=== PATIENT | female | born 1995 | race Two or more races ===

== ENCOUNTER 2017-08-08 16:49 | Emergency (ER) | payer MEDICAID ==
[~2017-08-08] VITALS: Ht 165.1 cm; Wt 86.2 kg
[~2017-08-08 16:49] MED LIST: IRON325 M1 PO; MEDROL DOSEPAK4 MG PO; NEURONTIN100 MG ORAL; NKM; PREDNISONE20 MG ORAL; PRENATAL CAPLE1 EACH PO; STOOL SOFTENER50 M1 PO; TRIAMCINOLONE A15 G2 TP; ZOFRAN ODT4 MG ORAL
--- NOTE | 2017-08-08 17:15 | Emergency Room Report ---
History of Present Illness General Chief Complaint: Complications Source: Patient, Medical Record Present Illness HPI 21-year-old female patient presents to ER complaining of right lower quadrant pain since this morning. Patient states the pain is intermittent; reports the pain is dull and "squeezing " in nature. Patient states she has not taken anything for the pain; reports she is able to "breathe through the pain" until it subsides. Patient states she is 5 weeks . Patient states she is currently taking vitamins. Patient reports a history of 2 previous pregnancies; states both resulted in spontaneous abortions. Patient reports both pregnancies were considered high risk secondary to high blood pressure. Patient reports history of allergy to Acetaminophen; states she becomes nauseous and vomits when she takes the pills. Patient denies fever, dysuria, hematuria, vaginal bleeding. Allergies: Coded Allergies: ACETAMINOPHEN (Verified Allergy, Unknown, 05/08/15) AMOXICILLIN (Verified Allergy, Unknown, 08/08/17) IBUPROFEN (Verified Allergy, Unknown, 05/08/15) PAMABROM (Verified Allergy, Unknown, 05/08/15) Patient History Last Menstrual Period: 06/18/17 Now: Yes - 5 weeks : 3 Para: 0 Reviewed Nursing Documentation: PMH: Agreed, PSxH: Agreed Nursing Documentation-PMH Past Medical History: No History, Except For Hx Asthma: Yes - positive TB test Hx Neurological Problems: Yes - LUPUS Review of Systems All Other Systems: negative except mentioned in HPI Physical Exam Vital Signs Date Time Temp Pulse Resp B/P (MAP) Pulse Ox O2 Delivery O2 Flow Rate FiO2 08/08/17 16:53 98.2 88 18 127/72 100 Room Air Sp02 EP Interpretation: reviewed, normal General Appearance: no apparent distress, alert, GCS 15, non-toxic Head: normocephalic, atraumatic Eyes: bilateral eye normal inspection, bilateral eye PERRL ENT: hearing grossly normal, normal pharynx, normal voice, TMs + canals normal , uvula midline, moist mucus membranes Neck: full range of motion Respiratory: chest non-tender, lungs clear, normal breath sounds, no respiratory distress, speaking full sentences Cardiovascular #1: regular rate, rhythm, no edema Gastrointestinal: normal bowel sounds, soft, no mass, non-distended, no guarding, no rebound, tenderness - RLQ, other - pain in RLQ with jumping on right foot Genitourinary: no CVA tenderness Musculoskeletal: back normal, gait/station normal, normal range of motion, non- tender, no calf tenderness Neurologic: alert, oriented x3, responsive, motor strength/tone normal, sensory intact, speech normal Psychiatric: mood/affect normal Skin: normal color, no rash, warm/dry, well hydrated Medical Decision Making PA Attestation Dr. Badillo is my supervising Physician whom patient management has been discussed with. Diagnostic Impression: Primary Impression: Abdominal pain during Additional Impression: Cyst of left kidney ER Course Pt. presents to the ED c/o abdominal pain. Ddx considered but are not limited to UTI, appendicitis, ovarian torsion, related abdominal pain. US performed in ED by Dr. Badillo to confirm presence of IUP. Discussed workup with Dr. Badillo, began workup to rule out appendicitis and ovarian torsion. Vital signs: are WNL, pt. is afebrile. ORDERS: UA with reflux, urine CBC, CMP, PT, PTT, lipase Type and Cross Abdominal US US packaging technician reports no acute findings of appendicitis or ovarian torsion. Reports finding of cyst in left kidney. ER COURSE: Discussed results of labs and imaging with patient. CBC shows no elevation in WBC, infection unlikely. UA negative for nitrites and WBCs, UTI unlikely. Abdominal US negative for acute appendicitis and ovarian torsion. Informed patient of left kidney cyst; informed patient that cyst is unlikely to be cause of pain; instructed patient to follow up with PCP regarding monitoring and treatment of cyst. Patient reporting pain has subsided since acute onset. Patient resting comfortably in the room, in no acute distress, non-toxic appearing. Patient requested medication for nausea. Explained possible effects of nausea medications on . Patient declined use of medication for nausea following discussion of risks of use. Patient was not discharge home with medications for pain secondary to allergy symptoms and . Patient declined use of medication for pain. Patient states she does not want to take any medication that may cause potential complications with her . Informed patient that abdominal pain may be related to . Patient instructed to follow up with OBGYN in 3-5 days for further treatment and evaluation of pain symptoms. Patient reports understanding and agreement with treatment plan. At this time pt. is stable for d/c to home with strict instructions to return to ER for new and/or worsening of symptoms. Will provide printed patient care instructions, and any necessary prescriptions. Care plan and follow up instructions have been discussed with the patient prior to discharge Labs Test 08/08/17 17:15 08/08/17 18:20 Urine Color Pale yellow Urine Appearance Clear Urine pH 7 (4.5-8.0) Urine Specific [place] 1.010 (1.005-1.035) Urine Protein Negative (NEGATIVE) Urine Glucose (UA) Negative (NEGATIVE) Urine Ketones Negative (NEGATIVE) Urine Occult Blood Negative (NEGATIVE) Urine Nitrite Negative (NEGATIVE) Urine Bilirubin Negative (NEGATIVE) Urine Urobilinogen Normal MG/DL (0.0-1.0) Urine Leukocyte Esterase 1+ (NEGATIVE) Urine RBC 0-2 /HPF (0 - 2) Urine WBC 0-2 /HPF (0 - 2) Urine Squamous Epithelial Cells Moderate /LPF (NONE/OCC) Urine Bacteria Occasional /HPF (NONE) Urine HCG, Qualitative Positive White Blood Count 10.6 K/UL (4.8-10.8) Red Blood Count 4.10 M/UL (4.20-5.40) Hemoglobin 12.2 G/DL (12.0-16.0) Hematocrit 36.5 % (37.0-47.0) Mean Corpuscular Volume 89 FL (80-99) Mean Corpuscular Hemoglobin 29.7 PG (27.0-31.0) Mean Corpuscular Hemoglobin Concent 33.3 G/DL (32.0-36.0) Red Cell Distribution Width 11.9 % (11.6-14.8) Platelet Count 320 K/UL (150-450) Mean Platelet Volume 6.7 FL (6.5-10.1) Neutrophils (%) (Auto) 59.7 % (45.0-75.0) Lymphocytes (%) (Auto) 30.1 % (20.0-45.0) Monocytes (%) (Auto) 6.6 % (1.0-10.0) Eosinophils (%) (Auto) 2.7 % (0.0-3.0) Basophils (%) (Auto) 1.0 % (0.0-2.0) Prothrombin Time 10.1 SEC (9.30-11.50) Prothromb Time International Ratio 1.0 (0.9-1.1) Activated Partial Thromboplast Time 29 SEC (23-33) Sodium Level 138 MMOL/L (136-145) Potassium Level 3.9 MMOL/L (3.5-5.1) Chloride Level 105 MMOL/L (98-107) Carbon Dioxide Level 26 MMOL/L (21-32) Anion Gap 7 mmol/L (5-15) Blood Urea Nitrogen 10 mg/dL (7-18) Creatinine 0.8 MG/DL (0.55-1.30) Estimat Glomerular Filtration Rate > 60 mL/min (>60) Glucose Level 84 MG/DL (74-106) Calcium Level 8.6 MG/DL (8.5-10.1) Total Bilirubin 0.1 MG/DL (0.2-1.0) Aspartate Amino Transf (AST/SGOT) 11 U/L (15-37) Alanine Aminotransferase (ALT/SGPT) 15 U/L (12-78) Alkaline Phosphatase 70 U/L (46-116) Total Protein 7.3 G/DL (6.4-8.2) Albumin 3.4 G/DL (3.4-5.0) Globulin 3.9 g/dL Albumin/Globulin Ratio 0.9 (1.0-2.7) Lipase 158 U/L (73-393) Human Chorionic Gonadotropin, Quant 24290 mIU/mL (1-6) CT/MRI/US Diagnostic Results CT/MRI/US Diagnostic Results : Imaging Test Ordered: US abdomen Impression No evidence acute intra-abdominal pathology. Left simple renal cyst. Last Vital Signs Date Time Temp Pulse Resp B/P (MAP) Pulse Ox O2 Delivery O2 Flow Rate FiO2 08/08/17 16:53 98.2 88 18 127/72 100 Room Air Disposition: HOME, SELF-CARE Condition: Stable Patient Instructions: Abdominal Pain During , [id number] Additional Instructions: Followup with OBGYN in 3 -5 days. Take medications as directed. Patient questions asked and answered. ER precautions given, patient instructed to return to ER immediately for any new or worsening of symptoms. Kei Jean Aug 08, 2017 17:15
[2017-08-08 17:43] LABS: APPEARANCE,URINE CLEAR; BILIRUBIN, URINE NEGATIVE (NEGATIVE); COLOR,URINE PALE YELLOW; GLUCOSE, URINE (UA) NEGATIVE (NEGATIVE); KETONES,URINE NEGATIVE (NEGATIVE); LEUKOCYTE ESTERASE ,URINE 1+ (NEGATIVE); NITRITE,URINE NEGATIVE (NEGATIVE); PH,URINE 7 (4.5-8.0); PROTEIN,URINE NEGATIVE (NEGATIVE); UROBILINOGEN,URINE NORMAL MG/DL (0.0-1.0)
[2017-08-08 18:48] LABS: EOSINOPHILS % (AUTO) 2.7 % (0.0-3.0); HEMATOCRIT 36.5 % (37.0-47.0); HEMOGLOBIN 12.2 G/DL (12.0-16.0); LYMPHOCYTES % (AUTO) 30.1 % (20.0-45.0); MEAN CORPUSCULAR VOLUME 89 FL (80-99); MONOCYTES % (AUTO) 6.6 % (1.0-10.0); NEUTROPHILS % (AUTO) 59.7 % (45.0-75.0); PLATELET COUNT 320 K/UL (150-450); RED CELL DISTRIBUTION WIDTH 11.9 % (11.6-14.8); WHITE BLOOD COUNT 10.6 K/UL (4.8-10.8)
[2017-08-08 18:55] LABS: ANION GAP 7 mmol/L (5-15); BLOOD UREA NITROGEN 10 mg/dL (7-18); CALCIUM 8.6 MG/DL (8.5-10.1); CARBON DIOXIDE 26 MMOL/L (21-32); CHLORIDE 105 MMOL/L (98-107); CREATININE 0.8 MG/DL (0.55-1.30); POTASSIUM 3.9 MMOL/L (3.5-5.1); SODIUM 138 MMOL/L (136-145)
[2017-08-08 19:05] LABS: ALANINE AMINOTRANSFERASE 15 U/L (12-78); ALBUMIN 3.4 G/DL (3.4-5.0); ALBUMIN/GLOBULIN RATIO 0.9 (1.0-2.7); ALKALINE PHOSPHATASE 70 U/L (46-116); ASPARTATE AMINO TRANSFERASE 11 U/L (15-37); BILIRUBIN,TOTAL 0.1 MG/DL (0.2-1.0)
[2017-08-08 21:06] VITALS: BP 120/69
--- NOTE | 2017-08-09 13:10 | Diagnostic Imaging Report ---
Indication: Pain Technique: US ABD Complete Comparison: None Findings: Imaged portions of the pancreatic head are unremarkable. The body and tail are not seen. Liver is normal in size with the right lobe measuring 15.9 cm in length. Hepatic contour is smooth. No focal liver lesion is appreciated sonographically. Portal vein is patent with normal directional flow. Imaged hepatic veins are patent. Common bile duct measures 3.4 mm in diameter. Gallbladder within normal limits. No gallbladder wall thickening or pericholecystic fluid. Kidneys are symmetric in size. They demonstrate normal parenchymal thickness and echogenicity. A circumscribed anechoic rounded structure in the midpole the left kidney measuring up to 1.4 cm compatible with a simple renal cyst. No hydronephrosis or sonographically appreciable renal stones bilaterally. Spleen unremarkable in appearance. It is normal in size. Visualized portions of the aorta and IVC unremarkable in appearance. There is no ascites. IMPRESSION: No sonographic evidence of acute intra-abdominal pathology. Left simple renal cyst. This corresponds with the preliminary report issued to the emergency department by the aeronautical engineering technologist.
== END 2017-08-08 21:06 | disposition home or self-care (01) ==
LOC: EMR 18:04
DX: O26.891 Other specified pregnancy related conditions, first trimester (principal); Z3A.01 Less than 8 weeks gestation of pregnancy; R10.31 Right lower quadrant pain; M32.9 Systemic lupus erythematosus, unspecified; N28.1 Cyst of kidney, acquired; Z88.6 Allergy status to analgesic agent; Z88.0 Allergy status to penicillin
CPT/HCPCS: 36415; 76700; 80053; 81003; 81025; 83690; 84702; 85025; 85610; 85730; 86850; 86900; 86901; 99283

== ENCOUNTER 2017-09-04 13:28 | Emergency (ER) | payer MEDICAID ==
[~2017-09-04] VITALS: Ht 165.1 cm; Wt 85.7 kg
--- NOTE | 2017-09-04 14:33 | Emergency Room Report ---
History of Present Illness General Chief Complaint: Complications Source: Patient (Kei Jean) Present Illness HPI 22 yo patient presents to ER sent by OBGYN for possible threatened . Patient reports vaginal spotting x3days; denies passage of tissue. Patient denies vaginal discharge. Denies dysuria, frequency, urgency. Patient complaining of abdominal pain and flank pain. Patient also complains of nausea and vomiting during this time. Denies hx of trauma. States unable to take nausea and NSAID medications due to risk of complications and allergies to medications. Patient reports following pelvic exam at OBGYN was sent to ER to rule out threatened . Patient reports history of 2 spontaneous abortions and one high risk that went to full term. Patient denies chest pain, KAM, SOB, rash. (Kei Jean) Allergies: Coded Allergies: ACETAMINOPHEN (Verified Allergy, Unknown, 05/08/15) AMOXICILLIN (Verified Allergy, Unknown, 08/08/17) IBUPROFEN (Verified Allergy, Unknown, 05/08/15) PAMABROM (Verified Allergy, Unknown, 05/08/15) Patient History Past Medical History: see triage record Last Menstrual Period: 06/28/2017 Now: Yes : 4 Para: 1 (Kei Jean) Nursing Documentation-[facility] Past Medical History: No History, Except For Hx Asthma: Yes - positive TB test Hx Neurological Problems: Yes - LUPUS (Kei Jean) Review of Systems All Other Systems: negative except mentioned in HPI (Kei Jean) Physical Exam Vital Signs Date Time Temp Pulse Resp B/P (MAP) Pulse Ox O2 Delivery O2 Flow Rate FiO2 09/04/17 13:37 98.3 106 18 109/69 97 Room Air 98.2 Sp02 EP Interpretation: reviewed, normal General Appearance: well appearing, alert, GCS 15, non-toxic, mild distress Head: normocephalic, atraumatic Eyes: bilateral eye normal inspection, bilateral eye PERRL ENT: hearing grossly normal, normal pharynx, normal voice, TMs + canals normal , uvula midline, moist mucus membranes Neck: full range of motion Respiratory: normal inspection, lungs clear, normal breath sounds, no respiratory distress, no accessory muscle use, no wheezing, speaking full sentences Cardiovascular #1: regular rate, rhythm, no edema Gastrointestinal: normal bowel sounds, non tender, soft, no mass, non-distended , no guarding, no rebound, other - negative Rovsing, negative TTP at McBurney's point Genitourinary: no CVA tenderness, other, deferred Musculoskeletal: back normal, digits/nails normal, gait/station normal, normal range of motion, no calf tenderness Neurologic: alert, oriented x3, responsive, motor strength/tone normal, sensory intact, normal gait Psychiatric: mood/affect normal Skin: no rash Lymphatic: no adenopathy (Kei Jean) Medical Decision Making PA Attestation Dr. Melendez is my supervising Physician whom patient management has been discussed with. (Kei Jean) Diagnostic Impression: Primary Impression: Abdominal pain during Qualified Codes: O26.891 - Other specified related conditions, first trimester; R10.9 - Unspecified abdominal pain Additional Impressions: Nausea/vomiting in Threatened miscarriage in early ER Course Pt. presents to the ED c/o possible threatened sent to ER by OBGYN. Ddx considered but are not limited to threatened , ectopic , missed , gestational trophoblastic disease. Vital signs: WNL pt. is afebrile; pulse slightly elevated, likely normal due to patient being mildly anxious over possible complications; denies chest pain, SOB. Ordered labs, UA, HCQ quant, urine , pelvic US, type and screen, and IV fluids. Patient declining medications at this time; reports allergies to Tylenol and Motrin and does not want nausea medications due to possible concerns of complications. ER COURSE: Patient deferred pelvic exam; states already had pelvic exam performed at OBGYN today and does not want another performed. CBC unremarkable, no elevation in WBC. HCG quant elevated; shows increase in level from previous visit. UA negative for nitrites, does not require treatment for UTI Urine HCG positive. Pelvic US negative; shows IUP, pole, yolk and gestational sac, FHR positive and no free fluid or adnexal masses. Results discussed with patient. Informed patient of type and screen results. Patient resting comfortably in bed, reports feeling mildly better after receiving IV fluids. Patient still reports pain complaints at this time. Informed patient to followup with OBGYN and primary care provider for further followup and treatment. Patient reports appointments already scheduled. Informed patient that she should discuss bed rest with OBGYN due to recurrence of symptoms. Informed patient to rest at home until followup visit. Patient and mother requesting copy of ultrasound report from today and previous visits. Patient informed to report to medical records. Provided copy of today's US results in discharge paperwork DISCHARGE: No rx provided at this time. Followup with OBGYN for further treatment for symptom relief. At this time pt. is stable for d/c to home. Patient vitals WNL prior to discharge. Will provide printed patient care instructions, and any necessary prescriptions. Patient instructed to follow with primary care provider for further treatment and referral as needed. Care plan and follow up instructions have been discussed with the patient prior to discharge. Patient reports understanding and agreement to treatment plan. Patient questions asked and answered. ER precautions given, patient instructed to return to ER immediately for any new or worsening of symptoms including but not limited to heavy bleeding, fever , pain. Labs Test 09/04/17 14:00 09/04/17 14:10 White Blood Count 7.5 K/UL (4.8-10.8) Red Blood Count 4.59 M/UL (4.20-5.40) Hemoglobin 13.7 G/DL (12.0-16.0) Hematocrit 40.5 % (37.0-47.0) Mean Corpuscular Volume 88 FL (80-99) Mean Corpuscular Hemoglobin 29.9 PG (27.0-31.0) Mean Corpuscular Hemoglobin Concent 33.9 G/DL (32.0-36.0) Red Cell Distribution Width 11.9 % (11.6-14.8) Platelet Count 298 K/UL (150-450) Mean Platelet Volume 6.7 FL (6.5-10.1) Neutrophils (%) (Auto) 79.1 % (45.0-75.0) Lymphocytes (%) (Auto) 12.7 % (20.0-45.0) Monocytes (%) (Auto) 6.2 % (1.0-10.0) Eosinophils (%) (Auto) 1.4 % (0.0-3.0) Basophils (%) (Auto) 0.7 % (0.0-2.0) Sodium Level 135 MMOL/L (136-145) Potassium Level 4.0 MMOL/L (3.5-5.1) Chloride Level 101 MMOL/L (98-107) Carbon Dioxide Level 27 MMOL/L (21-32) Anion Gap 7 mmol/L (5-15) Blood Urea Nitrogen 9 mg/dL (7-18) Creatinine 0.6 MG/DL (0.55-1.30) Estimat Glomerular Filtration Rate > 60 mL/min (>60) Glucose Level 95 MG/DL (74-106) Calcium Level 9.1 MG/DL (8.5-10.1) Total Bilirubin 0.1 MG/DL (0.2-1.0) Aspartate Amino Transf (AST/SGOT) 19 U/L (15-37) Alanine Aminotransferase (ALT/SGPT) 21 U/L (12-78) Alkaline Phosphatase 71 U/L (46-116) Total Protein 7.4 G/DL (6.4-8.2) Albumin 3.3 G/DL (3.4-5.0) Globulin 4.1 g/dL Albumin/Globulin Ratio 0.8 (1.0-2.7) Lipase 140 U/L (73-393) Human Chorionic Gonadotropin, Quant 038093 mIU/mL (1-6) Urine Color Yellow Urine Appearance Clear Urine pH 7 (4.5-8.0) Urine Specific [place] 1.015 (1.005-1.035) Urine Protein Negative (NEGATIVE) Urine Glucose (UA) Negative (NEGATIVE) Urine Ketones Negative (NEGATIVE) Urine Occult Blood 2+ (NEGATIVE) Urine Nitrite Negative (NEGATIVE) Urine Bilirubin Negative (NEGATIVE) Urine Urobilinogen Normal MG/DL (0.0-1.0) Urine Leukocyte Esterase 1+ (NEGATIVE) Urine RBC 2-4 /HPF (0 - 2) Urine WBC 2-4 /HPF (0 - 2) Urine Squamous Epithelial Cells Moderate /LPF (NONE/OCC) Urine Bacteria Few /HPF (NONE) Urine HCG, Qualitative Positive (Kei Jean P.A.) CT/MRI/US Diagnostic Results CT/MRI/US Diagnostic Results : Imaging Test Ordered: Pelvis US Impression Appear to be GS, yolk sac, and pole measured 11 wks and 2 days. FHR positive at 168bpm. No adnexal mass. No free fluid. (Kei Jean P.A.) Last Vital Signs Date Time Temp Pulse Resp B/P (MAP) Pulse Ox O2 Delivery O2 Flow Rate FiO2 09/04/17 13:37 98.3 106 18 109/69 97 Room Air 98.2 (Kei Jean) Last Vital Signs Date Time Temp Pulse Resp B/P (MAP) Pulse Ox O2 Delivery O2 Flow Rate FiO2 09/04/17 16:23 98.3 68 18 109/69 97 Room Air 98.2 Status: improved (Robel Melendez M.D.) Disposition: HOME, SELF-CARE Condition: Stable Patient Instructions: Abdominal Pain During , [id number] Additional Instructions: Followup with OBGYN in 2-3 days. Patient questions asked and answered. ER precautions given, patient instructed to return to ER immediately for any new or worsening of symptoms. Ultrasound results below. Appear to be GS, yolk sac, and pole measured 11 wks and 2 days. FHR positive at 168bpm. No adnexal mass. No free fluid. Kei Jean Sep 04, 2017 14:33 Robel Melendez M.D. Sep 05, 2017 23:18
[2017-09-04 14:34] LABS: BASOPHILS % (AUTO) 0.7 % (0.0-2.0); EOSINOPHILS % (AUTO) 1.4 % (0.0-3.0); HEMATOCRIT 40.5 % (37.0-47.0); HEMOGLOBIN 13.7 G/DL (12.0-16.0); LYMPHOCYTES % (AUTO) 12.7 % (20.0-45.0); MEAN CORPUSCULAR VOLUME 88 FL (80-99); MONOCYTES % (AUTO) 6.2 % (1.0-10.0); NEUTROPHILS % (AUTO) 79.1 % (45.0-75.0); PLATELET COUNT 298 K/UL (150-450); RED BLOOD COUNT 4.59 M/UL (4.20-5.40); RED CELL DISTRIBUTION WIDTH 11.9 % (11.6-14.8); WHITE BLOOD COUNT 7.5 K/UL (4.8-10.8)
[2017-09-04 14:46] LABS: ANION GAP 7 mmol/L (5-15); BLOOD UREA NITROGEN 9 mg/dL (7-18); CALCIUM 9.1 MG/DL (8.5-10.1); CARBON DIOXIDE 27 MMOL/L (21-32); CHLORIDE 101 MMOL/L (98-107); CREATININE 0.6 MG/DL (0.55-1.30); SODIUM 135 MMOL/L (136-145)
[2017-09-04 14:51] LABS: ALANINE AMINOTRANSFERASE 21 U/L (12-78); ALBUMIN 3.3 G/DL (3.4-5.0); ALBUMIN/GLOBULIN RATIO 0.8 (1.0-2.7); ALKALINE PHOSPHATASE 71 U/L (46-116); ASPARTATE AMINO TRANSFERASE 19 U/L (15-37); BILIRUBIN,TOTAL 0.1 MG/DL (0.2-1.0)
[2017-09-04 14:51] LABS: APPEARANCE,URINE CLEAR; BILIRUBIN, URINE NEGATIVE (NEGATIVE); GLUCOSE, URINE (UA) NEGATIVE (NEGATIVE); KETONES,URINE NEGATIVE (NEGATIVE); LEUKOCYTE ESTERASE ,URINE 1+ (NEGATIVE); NITRITE,URINE NEGATIVE (NEGATIVE); PH,URINE 7 (4.5-8.0); PROTEIN,URINE NEGATIVE (NEGATIVE); UROBILINOGEN,URINE NORMAL MG/DL (0.0-1.0)
[2017-09-04 15:07] LABS: COLOR,URINE YELLOW
[2017-09-04 16:23] VITALS: BP 109/69
== END 2017-09-04 16:23 | disposition home or self-care (01) ==
LOC: EMR 13:50
DX: O20.0 Threatened abortion (principal); O21.9 Vomiting of pregnancy, unspecified; O26.891 Other specified pregnancy related conditions, first trimester; M32.9 Systemic lupus erythematosus, unspecified; J45.909 Unspecified asthma, uncomplicated; Z88.0 Allergy status to penicillin; Z88.6 Allergy status to analgesic agent; Z88.8 Allergy status to other drugs, medicaments and biological substances
CPT/HCPCS: 36415; 76801; 76830; 80053; 81003; 81025; 83690; 84702; 85025; 86850; 86900; 86901; 96360; 99284

== ENCOUNTER → 2017-11-14 | Emergency (ER) | payer SELFPAY ==
[~2017-11-14] VITALS: Ht 167.6 cm; Wt 90.7 kg
[2017-11-14 12:05] VITALS: BP 107/49
--- NOTE | 2017-11-14 12:17 | Emergency Room Report ---
History of Present Illness General Chief Complaint: Abdominal Pain Source: Patient Present Illness HPI 22 yo female patient presents to ER complaining of abdominal pain and vaginal cramping for the past few days. Patient reports that she is 20 weeks . reports her "friend" performed an ultrasound yesterday and saw that there was less fluid than there should be, told, "friend" to go to [facility]. Reports she went [facility] today. Reports was seen in [facility] office today and sent to ER because could not perform ultrasound in office after that time. States unable to take nausea and NSAID medications due to risk of complications and allergies to medications. Patient reports history of 2 spontaneous abortions and one high risk that went to full term; reports high risk due to leg swelling and blood pressure. Reports hx of intermittent leg swelling during this time. Denies pain with ambulation or calf pain acutely. Denies hx of blood pressure problems or past medical hx. Denies hx of fainting. Denies fever, chest pain, calf pain, KAM, vision changes. patient also complains of intermittent epistaxis during this time, reports bleeding from nose. Gary active bleeding at this time. Allergies: Coded Allergies: AMOXICILLIN (Verified Allergy, Unknown, 08/08/17) Patient History Past Medical History: see triage record Reviewed Nursing Documentation: PMH: Agreed; PSxH: Agreed Nursing Documentation-PMH Past Medical History: No History, Except For Hx Asthma: Yes - positive TB test Hx Neurological Problems: Yes - LUPUS Review of Systems All Other Systems: negative except mentioned in HPI Physical Exam Vital Signs Date Time Temp Pulse Resp B/P (MAP) Pulse Ox O2 Delivery O2 Flow Rate FiO2 11/14/17 12:05 99.2 110 20 119/63 97 Room Air 99.1 Sp02 EP Interpretation: reviewed, normal General Appearance: well appearing, no apparent distress, alert, GCS 15, non- toxic Head: normocephalic, atraumatic Eyes: bilateral eye normal inspection, bilateral eye PERRL ENT: hearing grossly normal, normal pharynx, no angioedema, normal voice, TMs + canals normal, uvula midline, moist mucus membranes, other - left nares: dried blood, no active bleeding Neck: full range of motion Respiratory: lungs clear, normal breath sounds, no rhonchi, no respiratory distress, no accessory muscle use, no wheezing, speaking full sentences Cardiovascular #1: regular rate, rhythm, no edema Gastrointestinal: non tender, soft, no mass, non-distended, no guarding, no rebound Genitourinary: no CVA tenderness, deferred Musculoskeletal: back normal, digits/nails normal, gait/station normal, normal range of motion, non-tender, no calf tenderness, Josie's Sign negative Neurologic: alert, oriented x3, responsive, motor strength/tone normal, sensory intact Psychiatric: mood/affect normal Medical Decision Making PA Attestation Dr. Torres is my supervising Physician whom patient management has been discussed with. Diagnostic Impression: Primary Impression: Abdominal pain during ER Course Pt presents to ED c/o vaginal bleeding/spotting and epistaxis. DDX considered but are not limited to threatened , incomplete , complete , UTI, placenta previa, placenta abruption. VITAL SIGNS are WNL, patient is afebrile. Ordered CBC, CMP, UA, UCG, bHCG, IV NS and pelvic US. Tylenol for pain control. ER COURSE: Patient declined medication. CBC and CMP unremarkable, Hgb 11.1, blood glucose 116 UA results moderate epithelial cells, leukocyte esterase 2+, negative nitrites, no complaints of dysuria, will not treat for UTI at this time. Urine positive BetaHCG 8514 Blood type previously done. Blood type O positive, antibody screen negative. Pelvic US shows 20 week 3 day gestation, IUP, FHR 140, active movements. Patient reports feeling better following IV fluids. Discuss patient with Dr. Torres. Due to concerns of premature labor in patient over 20 weeks. Contacted L&D at [facility], discuss patient with OBGYN Dr. Reyes. Dr. Reyes states will accept transfer of patient. Patient transferred by ambulance to [facility] L&D. - Please note that this Emergency Department Report was dictated using [employer]acem[employer] operator technology software, occasionally this can lead to erroneous entry secondary to interpretation by the dictation equipment. Labs Test 11/14/17 12:30 11/14/17 12:45 Urine Color Pale yellow Urine Appearance Clear Urine pH 6.5 (4.5-8.0) Urine Specific [place] 1.010 (1.005-1.035) Urine Protein Negative (NEGATIVE) Urine Glucose (UA) Negative (NEGATIVE) Urine Ketones Negative (NEGATIVE) Urine Occult Blood Negative (NEGATIVE) Urine Nitrite Negative (NEGATIVE) Urine Bilirubin Negative (NEGATIVE) Urine Urobilinogen Normal MG/DL (0.0-1.0) Urine Leukocyte Esterase 2+ (NEGATIVE) Urine RBC 0-2 /HPF (0 - 2) Urine WBC 2-4 /HPF (0 - 2) Urine Squamous Epithelial Cells Moderate /LPF (NONE/OCC) Urine Bacteria Few /HPF (NONE) Urine HCG, Qualitative Positive (NEGATIVE) White Blood Count 10.7 K/UL (4.8-10.8) Red Blood Count 3.91 M/UL (4.20-5.40) Hemoglobin 11.8 G/DL (12.0-16.0) Hematocrit 34.5 % (37.0-47.0) Mean Corpuscular Volume 88 FL (80-99) Mean Corpuscular Hemoglobin 30.1 PG (27.0-31.0) Mean Corpuscular Hemoglobin Concent 34.1 G/DL (32.0-36.0) Red Cell Distribution Width 11.9 % (11.6-14.8) Platelet Count 299 K/UL (150-450) Mean Platelet Volume 6.8 FL (6.5-10.1) Neutrophils (%) (Auto) 75.0 % (45.0-75.0) Lymphocytes (%) (Auto) 17.6 % (20.0-45.0) Monocytes (%) (Auto) 4.9 % (1.0-10.0) Eosinophils (%) (Auto) 1.8 % (0.0-3.0) Basophils (%) (Auto) 0.7 % (0.0-2.0) Sodium Level 136 MMOL/L (136-145) Potassium Level 3.7 MMOL/L (3.5-5.1) Chloride Level 103 MMOL/L (98-107) Carbon Dioxide Level 21 MMOL/L (21-32) Anion Gap 12 mmol/L (5-15) Blood Urea Nitrogen 10 mg/dL (7-18) Creatinine 0.5 MG/DL (0.55-1.30) Estimat Glomerular Filtration Rate > 60 mL/min (>60) Glucose Level 111 MG/DL (74-106) Calcium Level 8.8 MG/DL (8.5-10.1) Total Bilirubin 0.2 MG/DL (0.2-1.0) Aspartate Amino Transf (AST/SGOT) 14 U/L (15-37) Alanine Aminotransferase (ALT/SGPT) 16 U/L (12-78) Alkaline Phosphatase 79 U/L (46-116) Total Protein 6.7 G/DL (6.4-8.2) Albumin 2.8 G/DL (3.4-5.0) Globulin 3.9 g/dL Albumin/Globulin Ratio 0.7 (1.0-2.7) Lipase 130 U/L (73-393) Human Chorionic Gonadotropin, Quant 8514 mIU/mL (1-6) CT/MRI/US Diagnostic Results CT/MRI/US Diagnostic Results : Imaging Test Ordered: Pelvic US Impression per fleet technician, heart rate 140, gestational age 20 weeks 3 days , normal fluid, active movements. Last Vital Signs Date Time Temp Pulse Resp B/P (MAP) Pulse Ox O2 Delivery O2 Flow Rate FiO2 11/14/17 12:05 99.2 110 20 119/63 97 Room Air 99.1 Disposition: [facility] - [place] L&D Condition: Serious Patient Instructions: Abdominal Pain During Kei Jean November 14, 2017 12:17
[2017-11-14 13:07] LABS: BASOPHILS % (AUTO) 0.7 % (0.0-2.0); EOSINOPHILS % (AUTO) 1.8 % (0.0-3.0); HEMATOCRIT 34.5 % (37.0-47.0); HEMOGLOBIN 11.8 G/DL (12.0-16.0); LYMPHOCYTES % (AUTO) 17.6 % (20.0-45.0); MEAN CORPUSCULAR VOLUME 88 FL (80-99); MONOCYTES % (AUTO) 4.9 % (1.0-10.0); PLATELET COUNT 299 K/UL (150-450); RED BLOOD COUNT 3.91 M/UL (4.20-5.40); RED CELL DISTRIBUTION WIDTH 11.9 % (11.6-14.8); WHITE BLOOD COUNT 10.7 K/UL (4.8-10.8)
[2017-11-14 13:08] LABS: APPEARANCE,URINE CLEAR; BILIRUBIN, URINE NEGATIVE (NEGATIVE); COLOR,URINE PALE YELLOW; GLUCOSE, URINE (UA) NEGATIVE (NEGATIVE); KETONES,URINE NEGATIVE (NEGATIVE); LEUKOCYTE ESTERASE ,URINE 2+ (NEGATIVE); NITRITE,URINE NEGATIVE (NEGATIVE); PH,URINE 6.5 (4.5-8.0); PROTEIN,URINE NEGATIVE (NEGATIVE); UROBILINOGEN,URINE NORMAL MG/DL (0.0-1.0)
[2017-11-14 13:28] LABS: ANION GAP 12 mmol/L (5-15); BLOOD UREA NITROGEN 10 mg/dL (7-18); CALCIUM 8.8 MG/DL (8.5-10.1); CARBON DIOXIDE 21 MMOL/L (21-32); CHLORIDE 103 MMOL/L (98-107); CREATININE 0.5 MG/DL (0.55-1.30); POTASSIUM 3.7 MMOL/L (3.5-5.1); SODIUM 136 MMOL/L (136-145)
[2017-11-14 13:32] LABS: ALANINE AMINOTRANSFERASE 16 U/L (12-78); ALBUMIN 2.8 G/DL (3.4-5.0); ALBUMIN/GLOBULIN RATIO 0.7 (1.0-2.7); ALKALINE PHOSPHATASE 79 U/L (46-116); ASPARTATE AMINO TRANSFERASE 14 U/L (15-37); BILIRUBIN,TOTAL 0.2 MG/DL (0.2-1.0)
[2017-11-14 14:54] VITALS: BP 100/57
[2017-11-14 15:25] VITALS: BP 124/71
--- NOTE | 2017-11-14 16:07 | Diagnostic Imaging Report ---
Indications: patient. Abdominal CABG x1 week. Nausea, vomiting. Technique: Transabdominal real-time grayscale and duplex Doppler imaging of intrauterine was performed. Comparison: 09/04/2017. Findings: There is a single live intrauterine identified. Presentation is breech at this time. A three-vessel cord is noted. The placenta is anterior. Spontaneous motion and cardiac motion noted with a heart rate of approximately 140 bpm. Amniotic fluid index is within normal limits, measuring approximately 15 mm. Biparietal diameter of approximately 4.8 cm. Head circumference of approximately 18 cm. Abdominal circumference approximately 15 cm. Femur length approximately 3.3 cm. No gross abnormality is identified however please note full anatomy scan with CULTURIST recommended for better evaluation. The cervix is long and closed. Ovaries are not identified. IMPRESSION: Delong live intrauterine with composite gestational age by ultrasound of approximately 20 weeks 3 days. No definite focal abnormality identified, however anatomy scan is limited. Note: A negative ultrasound evaluation does not insure well-being or positive outcome for the . monitoring including a nonstress test may be needed and clinical evaluation by CULTURIST is highly recommended.
== END | disposition short-term general hospital (02) ==
LOC: EMR 12:25
DX: O26.892 Other specified pregnancy related conditions, second trimester (principal); Z3A.20 20 weeks gestation of pregnancy; R10.9 Unspecified abdominal pain; J45.909 Unspecified asthma, uncomplicated; M32.9 Systemic lupus erythematosus, unspecified; Z88.0 Allergy status to penicillin
CPT/HCPCS: 36415; 76805; 80053; 81003; 81025; 83690; 84702; 85025; 96374; 99285

== ENCOUNTER 2019-03-05 13:03 | Emergency (ER) | payer MEDICAID ==
[~2019-03-05] VITALS: Ht 165.1 cm; Wt 89.8 kg
[2019-03-05 13:18] VITALS: BP 122/64
[2019-03-05] MEDS ORDERED: D5NS 1,000 ML IV ONE (13:45)
--- NOTE | 2019-03-05 14:05 | Emergency Room Report ---
History of Present Illness General Chief Complaint: Dizziness Source: Patient Present Illness HPI Disclaimer: Please note that this report is being documented using DRAGON technology. This can lead to erroneous entry secondary to incorrect interpretation by the dictating instrument. HPI: 23-year-old female with history of eczema, multiple pregnancies presents for evaluation of nausea/vomiting, diarrhea, lightheadedness, unexplained weight loss. States symptoms have been going on for a month or longer. She states that she has bad almost daily vomiting and nausea both postprandially and several hours after eating. She had an episode of nonbloody diarrhea yesterday but this seems to have been resolving. She states she is feeling lightheaded over the past few weeks especially when rising from a seated position. She has fallen several times stating that her knees will buckle. She reports intermittent headaches, blurred vision, photophobia and difficulty focusing her vision on objects. She currently denies a headache, chest pain, shortness of breath, cough, nausea but states she did vomit just prior to arrival. She denies any dysuria, hematuria, vaginal discharge, vaginal bleeding. She continues to breast-feed. She had a normal menstrual period last month. Denies any drug or alcohol or tobacco use. Otherwise only takes calcium and magnesium supplements. Denies any recent fevers, chills, sore throat, new rash aside from her eczema. She also reports a near 20 pound weight loss over the past month which is been unintentional. There is been no change in her diet, no change in her exercise level, does not recall any fevers. Denies any issues with thyroid or other hormonal imbalances. PMH: Eczema PSH: Denies Allergies: Seasonal amoxicillin Social Hx: Denies alcohol, drug or tobacco use Allergies: Coded Allergies: AMOXICILLIN (Verified Allergy, Unknown, 08/08/17) Patient History Now: No Nursing Documentation-PMH Past Medical History: No History, Except For Hx Asthma: Yes - positive TB test Hx Neurological Problems: Yes - LUPUS Review of Systems All Other Systems: negative except mentioned in HPI Physical Exam Vital Signs Date Time Temp Pulse Resp B/P (MAP) Pulse Ox O2 Delivery O2 Flow Rate FiO2 03/05/19 13:12 98.8 94 18 122/64 (83) 99 Room Air General: Awake and alert, no acute distress HEENT: NC/AT. EOMI. PERRLA. No nystagmus. Moist mucous membranes. Neck: Supple, trachea midline Chest Wall: No tenderness, no deformity Cardiovascular: RRR. S1 and S2 normal. No murmur appreciated Resp: Normal work of breathing. No cough, wheezing or crackles appreciated Abdomen: Abdomen is soft, obese, nondistended. Numbness in the right lower quadrant and suprapubic region without rebound. No right upper quadrant tenderness, negative Batista sign. Skin: I dry and cracked skin over the back of the neck and upper trapezius bilaterally. No breakdown, no weeping. There are excoriations over the medial malleolus on the right ankle and between the finger webbing of the first and second digit on the right hand. MSK: Normal tone and bulk. Moving all extremities. No obvious deformity. Neuro: Awake and alert. Mentating appropriately. Facial expressions are symmetrical. Strength is 5/5 in all major joints and muscle groups. Sensation is intact to light touch over the upper and lower extremities. Back/Spine: No midline tenderness in the cervical, thoracic or lumbosacral spine. Mild paraspinal tenderness and tenderness over the pedis bilaterally Medical Decision Making ER Course 23-year-old female presents for evaluation of month-long symptoms including postprandial emesis, lightheadedness, weakness, near syncope, headaches, abdominal pain, unexplained weight loss. Given the wide range of symptoms we will have to start a full metabolic work-up labs including electrolytes, liver function studies, complete blood count, magnesium, phosphorus, UA, and obtain a CT scan with IV contrast of the abdomen. Laboratory Tests Test 03/05/19 13:34 03/05/19 13:52 Urine Color Pale yellow Urine Appearance Clear Urine pH 8 (4.5-8.0) Urine Specific [place] 1.010 (1.005-1.035) Urine Protein Negative (NEGATIVE) Urine Glucose (UA) Negative (NEGATIVE) Urine Ketones Negative (NEGATIVE) Urine Blood Negative (NEGATIVE) Urine Nitrite Negative (NEGATIVE) Urine Bilirubin Negative (NEGATIVE) Urine Urobilinogen Normal MG/DL (0.0-1.0) Urine Leukocyte Esterase Negative (NEGATIVE) Urine HCG, Qualitative Negative (NEGATIVE) White Blood Count 10.4 K/UL (4.8-10.8) Red Blood Count 4.91 M/UL (4.20-5.40) Hemoglobin 13.8 G/DL (12.0-16.0) Hematocrit 43.1 % (37.0-47.0) Mean Corpuscular Volume 88 FL (80-99) Mean Corpuscular Hemoglobin 28.2 PG (27.0-31.0) Mean Corpuscular Hemoglobin Concent 32.0 G/DL (32.0-36.0) Red Cell Distribution Width 12.5 % (11.6-14.8) Platelet Count 353 K/UL (150-450) Mean Platelet Volume 6.4 FL (6.5-10.1) L Neutrophils (%) (Auto) 68.3 % (45.0-75.0) Lymphocytes (%) (Auto) 22.1 % (20.0-45.0) Monocytes (%) (Auto) 6.0 % (1.0-10.0) Eosinophils (%) (Auto) 2.6 % (0.0-3.0) Basophils (%) (Auto) 1.0 % (0.0-2.0) Sodium Level 138 MMOL/L (136-145) Potassium Level 3.8 MMOL/L (3.5-5.1) Chloride Level 105 MMOL/L (98-107) Carbon Dioxide Level 26 MMOL/L (21-32) Anion Gap 7 mmol/L (5-15) Blood Urea Nitrogen 13 mg/dL (7-18) Creatinine 1.0 MG/DL (0.55-1.30) Estimate Glomerular Filtration Rate > 60 mL/min (>60) Glucose Level 100 MG/DL (74-106) Calcium Level 9.2 MG/DL (8.5-10.1) Phosphorus Level 3.4 MG/DL (2.5-4.9) Magnesium Level 1.8 MG/DL (1.8-2.4) Total Bilirubin 0.2 MG/DL (0.2-1.0) Aspartate Amino Transferase (AST) 21 U/L (15-37) Alanine Aminotransferase (ALT) 22 U/L (12-78) Alkaline Phosphatase 90 U/L (46-116) Total Creatine Kinase 75 U/L (26-308) Total Protein 8.2 G/DL (6.4-8.2) Albumin 3.9 G/DL (3.4-5.0) Globulin 4.3 g/dL Albumin/Globulin Ratio 0.9 (1.0-2.7) L Thyroid Stimulating Hormone (TSH) 1.668 uiU/mL (0.358-3.740) EKG Diagnostic Results EKG Time: 13:55 Rate: tachycardiac Rhythm: NSR ST Segments: no acute changes Other Impression Sinus tachycardia with a rate of 102 bpm, normal intervals, normal axis. No acute ischemic changes. Rhythm Strip Diag. Results Rhythm Strip Time: 13:55 EP Interpretation: yes Rate: 100s Rhythm: NSR Chest X-Ray Diagnostic Results Chest X-Ray Diagnostic Results : # of Views/Limited/Complete: 1 View Indication: Other - Weight loss EP Interpretation: Yes Interpretation: no consolidation, no effusion, no pneumothorax Impression: No acute disease - No masses appreciated Electronically Signed by: Electronically signed by Dr. Negro Henriquez CT/MRI/US Diagnostic Results CT/MRI/US Diagnostic Results : Impression CT abd/pel Impression: Limited assessment of the GI tract, due to lack of enteric contrast administration. Equivocal minimal wall thickening of the transverse and distal descending colon, probably artifact lack of distention, but the possibility of colitis should be considered. Trace free pelvic fluid, presumably physiologic Otherwise unremarkable Last Vital Signs Date Time Temp Pulse Resp B/P (MAP) Pulse Ox O2 Delivery O2 Flow Rate FiO2 03/05/19 13:18 98.8 18 122/64 99 Room Air 03/05/19 13:12 94 Status: improved Reevaluation Impression Blood work returned largely within normal limits. No significant white count, normal renal function, no evidence of urinary tract infection. CT scan of the abdomen showed possible inflammation of the distal transverse colon however they noted that this may be artifact. Given the patient's prolonged symptoms and inflammatory condition such as Crohn's, ulcerative colitis, celiac disease or others may be the cause of her abdominal discomfort, nausea and vomiting. She states her symptoms are now completely resolved and she is returned to her baseline. No lightheadedness or other symptoms reported at this time. She is requesting discharge home on NSAIDs and she will follow-up with her PMD to discuss these findings and possible schedule outpatient evaluation by gastroenterology as needed. We discussed reasons to return to the emergency department. The patient was provided with a copy of her CT scan. She understands and agrees with this treatment plan will be discharged home. Disposition: HOME, SELF-CARE Condition: Improved Scripts Ibuprofen* (MOTRIN*) 600 Mg Tablet 600 MG ORAL Q6H PRN for For Pain, #30 TAB 0 Refills Prov: Negro Henriquez MD 03/05/19 Negro Henriquez MD Mar 05, 2019 14:05
[2019-03-05] MEDS ORDERED: Isovue-300 100ml vial INJ PRN (14:15)
[2019-03-05 14:18] LABS: EOSINOPHILS % (AUTO) 2.6 % (0.0-3.0); HEMATOCRIT 43.1 % (37.0-47.0); HEMOGLOBIN 13.8 G/DL (12.0-16.0); LYMPHOCYTES % (AUTO) 22.1 % (20.0-45.0); MEAN CORPUSCULAR VOLUME 88 FL (80-99); NEUTROPHILS % (AUTO) 68.3 % (45.0-75.0); PLATELET COUNT 353 K/UL (150-450); RED BLOOD COUNT 4.91 M/UL (4.20-5.40); RED CELL DISTRIBUTION WIDTH 12.5 % (11.6-14.8); WHITE BLOOD COUNT 10.4 K/UL (4.8-10.8)
[2019-03-05 14:18] LABS: APPEARANCE,URINE CLEAR; BILIRUBIN, URINE NEGATIVE (NEGATIVE); COLOR,URINE PALE YELLOW; GLUCOSE, URINE (UA) NEGATIVE (NEGATIVE); KETONES,URINE NEGATIVE (NEGATIVE); LEUKOCYTE ESTERASE ,URINE NEGATIVE (NEGATIVE); NITRITE,URINE NEGATIVE (NEGATIVE); PH,URINE 8 (4.5-8.0); PROTEIN,URINE NEGATIVE (NEGATIVE); UROBILINOGEN,URINE NORMAL MG/DL (0.0-1.0)
[2019-03-05 14:31] LABS: ANION GAP 7 mmol/L (5-15); BLOOD UREA NITROGEN 13 mg/dL (7-18); CALCIUM 9.2 MG/DL (8.5-10.1); CARBON DIOXIDE 26 MMOL/L (21-32); CHLORIDE 105 MMOL/L (98-107); POTASSIUM 3.8 MMOL/L (3.5-5.1); SODIUM 138 MMOL/L (136-145)
[2019-03-05 14:35] LABS: ALANINE AMINOTRANSFERASE 22 U/L (12-78); ALBUMIN 3.9 G/DL (3.4-5.0); ALBUMIN/GLOBULIN RATIO 0.9 (1.0-2.7); ALKALINE PHOSPHATASE 90 U/L (46-116); ASPARTATE AMINO TRANSFERASE 21 U/L (15-37); BILIRUBIN,TOTAL 0.2 MG/DL (0.2-1.0)
[2019-03-05 14:37] LABS: CREATINE KINASE 75 U/L (26-308)
[2019-03-05 14:43] LABS: PHOSPHORUS 3.4 MG/DL (2.5-4.9)
--- NOTE | 2019-03-05 16:32 | NUR ---
ED Nurse Note: pt from home c/o abd pain and dizziness ermd eval done meds given labs sent vss ct done pt resting awaiting results
[2019-03-05 16:41] VITALS: BP 121/68
--- NOTE | 2019-03-05 17:04 | Diagnostic Imaging Report ---
Indication: Cough Technique: One view of the chest Comparison: 03/27/2009 Findings: Lungs and pleural spaces are clear. Heart size is normal Impression: No acute process
--- NOTE | 2019-03-05 17:08 | Diagnostic Imaging Report ---
Clinical Indication: Abdominal pain, right-sided abdominal pain, nausea and vomiting Technique: No oral contrast utilized, per emergency room physician request IV administration nonionic contrast. Venous phase spiral acquisition obtained through the abdomen and pelvis. Multiplanar reconstructions were generated. Total dose length product 865.62 mGycm. CTDIvol(s) 15.91 mGy. Dose reduction achieved using automated exposure control Comparison: none Findings: Lack of enteric contrast limits assessment of the GI tract. The appendix is normal. There is equivocal minimal wall thickening of the transverse and distal descending colon, probably artifact lack of of distention. There is trace free pelvic fluid. No small bowel distention. No free intraperitoneal gas demonstrated. The distal esophagus is unremarkable. The stomach is somewhat distended with food. The duodenum is unremarkable. The liver, gallbladder, bile ducts, pancreas, spleen, adrenals, kidneys are unremarkable. No renal or ureter calculi, hydronephrosis, or hydroureter demonstrated. No retroperitoneal or mesenteric mass or adenopathy. No pelvic mass or adenopathy. Normal uterus and ovaries. The included lung bases are clear. The bones are unremarkable. Impression: Limited assessment of the GI tract, due to lack of enteric contrast administration. Equivocal minimal wall thickening of the transverse and distal descending colon, probably artifact lack of distention, but the possibility of colitis should be considered. Trace free pelvic fluid, presumably physiologic Otherwise unremarkable The CT scanner at [facility] is accredited by the [employer] and the scans are performed using protocols designed to limit radiation exposure to as low as reasonably achievable to attain images of sufficient resolution adequate for diagnostic evaluation.
[2019-03-05] MEDS ORDERED: IBUPROFEN600 MG ORAL (17:29)
--- NOTE | 2019-03-05 17:51 | NUR ---
ER DISCHARGE NOTE: Patient is cleared to be discharged per ERMD, pt is aox4, on room air, with stable vital signs. pt was given dc and prescription instructions, pt was able to verbalize understanding, pt id band and iv site removed without complications. pt is able to ambulate with steady gait. pt took all belongings.
[2019-03-05 17:52] VITALS: BP 112/63
== END 2019-03-05 17:54 | disposition home or self-care (01) ==
LOC: EMR 15:20
DX: R42 Dizziness and giddiness (principal); R10.9 Unspecified abdominal pain; R11.2 Nausea with vomiting, unspecified; R05 Cough; R63.4 Abnormal weight loss; M32.9 Systemic lupus erythematosus, unspecified; Z68.32 Body mass index [BMI] 32.0-32.9, adult
CPT/HCPCS: 36415; 71045; 74177; 80053; 81003; 81025; 82550; 83735; 84100; 84443; 85025; 96360; 99284; Q9967

== ENCOUNTER 2020-05-09 00:49 | Emergency (ER) | payer MEDICAID ==
[~2020-05-09] VITALS: Ht 165.1 cm; Wt 99.8 kg
[~2020-05-09 00:49] MED LIST changes: +IBUPROFEN600 MG ORAL
[2020-05-09 01:08] VITALS: BP 115/76
--- NOTE | 2020-05-09 01:10 | NUR ---
ED Nurse Note: PT walked in c/o headache and LT eye blurry vision for 2 weeks. Patient denies CP, nausea vomitting diarrhea. reports recent psychosocial stressors prior to onset of symptoms. changed into gown; attached to monitor. patient ao4 with no acute distress. vitals stable ambulatory with steady gait. urine collected; sent down to lab. all safety measures met.
--- NOTE | 2020-05-09 01:15 | NUR ---
ED Nurse Note: iv access established. blood and urine collected; sent down to lab. medicated patient; tolerated well. decreased environmental stimuli; dimmed lights; provided with warm blankets.
[2020-05-09] MEDS ORDERED: MOBIC15 MG ORAL (01:26)
[2020-05-09] MEDS ORDERED: AMITRIPTYLINE H50 MG ORAL (01:26)
--- NOTE | 2020-05-09 01:27 | Emergency Room Report ---
History of Present Illness General Chief Complaint: Dizziness Source: Patient Present Illness HPI This is a 24-year-old female with no past medical history. She presents when she complained of headache and dizziness. She says she occasionally get headache but recently in the last week or so assuming getting it daily. Usually around her eyes waiting for back. She felt nauseous with vomiting. Worse with lights and noise. Increased stress lately. She said that her mom was hospitalized for Covid and still recovering from that. Denies any fever chills but denies any focal deficit. Pain is 8 out of 10. Usually take [id number] medication but is not helping now. Never had any work-up as far as a CT scan or MRI. Allergies: Coded Allergies: AMOXICILLIN (Verified Allergy, Unknown, 08/08/17) COVID-19 Screening Contact w/high risk pt: No Experienced COVID-19 symptoms?: No COVID-19 Testing performed POND SAWYER: No Patient History Past Medical History: see triage record, old chart reviewed Past Surgical History: none Pertinent Family History: none Social History: Denies: smoking Last Menstrual Period: 04/2020 Now: No Immunizations: other Reviewed Nursing Documentation: PMH: Agreed; PSxH: Agreed Nursing Documentation-PMH Hx Asthma: Yes - false positive TB test Hx Neurological Problems: Yes - LUPUS, eczema Review of Systems Eye: Denies: eye pain, blurred vision ENT: Denies: ear pain, nose congestion, throat swelling Respiratory: Denies: cough, shortness of breath Cardiovascular: Denies: chest pain, palpitations Gastrointestinal: Denies: abdominal pain, diarrhea, nausea, vomiting Musculoskeletal: Denies: back pain, joint pain Skin: Denies: rash Neurological: Reports: headache; Denies: numbness Endocrine: Denies: increased thirst, increased urine Hematologic/Lymphatic: Denies: easy bruising All Other Systems: negative except mentioned in HPI Physical Exam Vital Signs Date Time Temp Pulse Resp B/P (MAP) Pulse Ox O2 Delivery O2 Flow Rate FiO2 05/09/20 00:58 98.4 74 16 115/76 (89) 95 Room Air Vitals normal Sp02 EP Interpretation: reviewed, normal General Appearance: well appearing, no apparent distress, alert Head: normocephalic, atraumatic Eyes: bilateral eye PERRL, bilateral eye EOMI ENT: hearing grossly normal, normal pharynx Neck: full range of motion, supple, no meningismus Respiratory: chest non-tender, lungs clear, normal breath sounds Cardiovascular #1: regular rate, rhythm, no murmur Gastrointestinal: normal bowel sounds, non tender, no mass, no organomegaly, no bruit, non-distended Musculoskeletal: back normal, normal range of motion, gait/station normal Psychiatric: mood/affect normal Medical Decision Making Diagnostic Impression: Primary Impression: Headache Qualified Codes: R51.9 - Headache, unspecified ER Course Patient presents with headache. This may be migrainous or tension in nature. Worse with anxiety related. She looks well. No evidence of meningitis, bleed or neoplastic process. Order CT scan because headache is getting worse and she never had any work-up. CT/MRI/US Diagnostic Results CT/MRI/US Diagnostic Results : Imaging Test Ordered: CT head Impression Per radiologist negative Last Vital Signs Date Time Temp Pulse Resp B/P (MAP) Pulse Ox O2 Delivery O2 Flow Rate FiO2 05/09/20 01:08 74 16 Room Air 05/09/20 01:08 98.4 115/76 95 Status: improved Disposition: HOME, SELF-CARE Condition: Stable Scripts Meloxicam* (MOBIC*) 15 Mg Tablet 15 MG ORAL DAILY, #30 TAB 0 Refills Prov: Nathaniel Suazo MD 05/09/20 Amitriptyline Hcl (AMITRIPTYLINE HCL) 50 Mg Tablet 50 MG ORAL BEDTIME, #30 TAB Prov: Nathaniel Suazo MD 05/09/20 Additional Instructions: Follow-up with In 7 days. If you continue with headache, you may need referral to see a neurologist. Return if symptoms worsen. Nathaniel Suazo MD May 09, 2020 01:27
[2020-05-09] MEDS ORDERED: Metoclopramide 10mg/2ml Inj IVP ONE (01:30)
[2020-05-09] MEDS ORDERED: Ketorolac 30mg Inj IV ONE (01:30)
[2020-05-09 01:33] LABS: APPEARANCE,URINE CLEAR; BILIRUBIN, URINE NEGATIVE (NEGATIVE); COLOR,URINE PALE YELLOW; GLUCOSE, URINE (UA) NEGATIVE (NEGATIVE); KETONES,URINE NEGATIVE (NEGATIVE); LEUKOCYTE ESTERASE ,URINE NEGATIVE (NEGATIVE); NITRITE,URINE NEGATIVE (NEGATIVE); PH,URINE 6 (4.5-8.0); PROTEIN,URINE NEGATIVE (NEGATIVE); UROBILINOGEN,URINE NORMAL MG/DL (0.0-1.0)
[2020-05-09 02:05] VITALS: BP 115/76
--- NOTE | 2020-05-09 02:28 | Diagnostic Imaging Report ---
EXAM: CT Head Without Intravenous Contrast CLINICAL HISTORY: PAIN TECHNIQUE: Axial computed tomography images of the head/brain without intravenous contrast. CTDI is 53.4 mGy and DLP is 1045.5 mGy-cm. One or more of the following dose reduction techniques were used: automated exposure control, adjustment of the mA and/or kV according to patient size, use of iterative reconstruction technique. COMPARISON: No relevant prior studies available. FINDINGS: Brain: See below. Brainstem: Focal hypodensity in the central aspect of the shashank which appears to extend into the central midbrain. This may partly reflect artifact. Recommend clinical correlation and follow-up MR for better visualization of this region. Ventricles: Unremarkable. No ventriculomegaly. Bones/joints: Unremarkable. No acute fracture. Soft tissues: Unremarkable. Sinuses: Unremarkable as visualized. No acute sinusitis. Mastoid air cells: Unremarkable as visualized. No mastoid effusion. IMPRESSION: 1. No acute hemorrhage, mass effect or midline shift. 2. Finding in the midbrain and central shashank which may reflect artifact. 3. Eventual follow-up MR for further evaluation and better visualization as indicated
== END 2020-05-09 02:05 | disposition home or self-care (01) ==
LOC: EMR 01:23
DX: R51.9 Headache, unspecified (principal); R42 Dizziness and giddiness; Z88.1 Allergy status to other antibiotic agents
CPT/HCPCS: 70450; 81003; 81025; 96374; 96375; J1885; J2765; Z7502; 99284

== ENCOUNTER 2020-05-12 12:10 | Emergency (ER) | payer MEDICAID ==
[~2020-05-12] VITALS: Ht 165.1 cm; Wt 99.3 kg
[~2020-05-12 12:10] MED LIST changes: +AMITRIPTYLINE H50 MG ORAL; +MOBIC15 MG ORAL
--- NOTE | 2020-05-12 12:16 | NUR ---
ED Nurse Note: Pt ambulated to ED from home d/t dizziness that goes on and off for a couple of weeks accompanied by frontal headache and back muscle spasms. Pt is AOx4, calm and cooperative to care, denies any recent injury/trauma, VSS, on RA, afebrile on triage. Pt was placed on bed and gown; hooked to school bus monitor, family member at bedside.
[2020-05-12 12:45] VITALS: BP 122/79
[2020-05-12 12:45] LABS: APPEARANCE,URINE CLEAR; BASOPHILS % (AUTO) 1.1 % (0.0-2.0); BILIRUBIN, URINE NEGATIVE (NEGATIVE); COLOR,URINE PALE YELLOW; EOSINOPHILS % (AUTO) 3.1 % (0.0-3.0); GLUCOSE, URINE (UA) NEGATIVE (NEGATIVE); HEMATOCRIT 40.4 % (37.0-47.0); KETONES,URINE NEGATIVE (NEGATIVE); LEUKOCYTE ESTERASE ,URINE NEGATIVE (NEGATIVE); LYMPHOCYTES % (AUTO) 23.5 % (20.0-45.0); MEAN CORPUSCULAR VOLUME 89 FL (80-99); MONOCYTES % (AUTO) 5.7 % (1.0-10.0); NEUTROPHILS % (AUTO) 66.6 % (45.0-75.0); NITRITE,URINE NEGATIVE (NEGATIVE); PH,URINE 8 (4.5-8.0); PLATELET COUNT 313 K/UL (150-450); PROTEIN,URINE NEGATIVE (NEGATIVE); RED BLOOD COUNT 4.55 M/UL (4.20-5.40); RED CELL DISTRIBUTION WIDTH 14.1 % (11.6-14.8); UROBILINOGEN,URINE NORMAL MG/DL (0.0-1.0); WHITE BLOOD COUNT 9.9 K/UL (4.8-10.8)
[2020-05-12 13:02] LABS: ALANINE AMINOTRANSFERASE 46 U/L (12-78); ALBUMIN 3.7 G/DL (3.4-5.0); ALBUMIN/GLOBULIN RATIO 0.9 (1.0-2.7); ALKALINE PHOSPHATASE 96 U/L (46-116); ANION GAP 9 mmol/L (5-15); ASPARTATE AMINO TRANSFERASE 26 U/L (15-37); BILIRUBIN,TOTAL 0.2 MG/DL (0.2-1.0); BLOOD UREA NITROGEN 14 mg/dL (7-18); CALCIUM 8.5 MG/DL (8.5-10.1); CARBON DIOXIDE 26 MMOL/L (21-32); CHLORIDE 106 MMOL/L (98-107); CREATININE 0.8 MG/DL (0.55-1.30); POTASSIUM 3.9 MMOL/L (3.5-5.1); SODIUM 141 MMOL/L (136-145)
--- NOTE | 2020-05-12 13:15 | NUR ---
ED Nurse Note: Pt was taken to MRI accompanied by tech.
--- NOTE | 2020-05-12 13:57 | NUR ---
ED Nurse Note: Pt returned from MRI.
--- NOTE | 2020-05-12 14:06 | Emergency Room Report ---
History of Present Illness General Chief Complaint: Dizziness Source: Patient Present Illness HPI 24-year-old female here with headache and focal neurologic deficits. Patient says that for the past several weeks she has been exhibiting numbness and paresthesias of her upper neck and right upper extremity. She was here in the emergency department 3 days ago where she had a CT scan performed that showed a questionable finding versus artifact in the central shashank. Patient however left AGAINST MEDICAL ADVICE before the results were obtained by radiology. Patient says that over the past 24 hours she has been exhibiting worsening headaches and had decreased visual acuity in the left eye. Headache is diffuse in nature, throbbing, associated with photophobia. She has been using Motrin with only mild intermittent relief. She still feeling paresthesias on the right side of her upper back rating to her right shoulder and right upper extremity. Allergies: Coded Allergies: AMOXICILLIN (Verified Allergy, Unknown, 08/08/17) COVID-19 Screening Contact w/high risk pt: No Experienced COVID-19 symptoms?: No COVID-19 Testing performed NEUROLOGY TECHNOLOGIST: No Patient History Now: No Nursing Documentation-[facility] Past Medical History: No History, Except For Hx Asthma: Yes - false positive TB test Hx Neurological Problems: Yes - LUPUS, eczema Review of Systems All Other Systems: negative except mentioned in HPI Physical Exam Vital Signs Date Time Temp Pulse Resp B/P (MAP) Pulse Ox O2 Delivery O2 Flow Rate FiO2 05/12/20 12:13 98.8 73 16 122/79 (93) 99 Room Air Sp02 EP Interpretation: reviewed, normal General Appearance: alert, non-toxic, mild distress, other - Appears in mild discomfort secondary to photophobia Head: normocephalic, atraumatic Eyes: bilateral eye normal inspection, bilateral eye PERRL ENT: hearing grossly normal, normal pharynx, no angioedema, normal voice Neck: full range of motion, supple/symm/no masses Respiratory: chest non-tender, lungs clear, normal breath sounds, speaking full sentences Cardiovascular #1: regular rate, rhythm, no edema Cardiovascular #2: 2+ carotid (R), 2+ carotid (L), 2+ radial (R), 2+ radial (L), 2+ dorsalis pedis (R), 2+ dorsalis pedis (L) Gastrointestinal: normal bowel sounds, non tender, soft, non-distended, no guarding, no rebound Rectal: deferred Genitourinary: normal inspection, no CVA tenderness Musculoskeletal: back normal, normal range of motion, calf tenderness, gait/station normal, non-tender Neurologic: alert, motor strength/tone normal, oriented x3, sensory intact, responsive, speech normal, other - Subjective weakness of the right upper extremity, but normal 5 out of 5 strength of bilateral extremities Psychiatric: judgement/insight normal, memory normal, mood/affect normal, no suicidal/homicidal ideation Lymphatic: no adenopathy Medical Decision Making ER Course 24-year-old female here with multiple neurologic complaints and headache. Review of patient's previous CT scan performed 3 days ago showed possible artifact versus abnormal finding in the shashank. MRI was recommended. Patient is currently undergoing MRI for further elucidation of this possible abnormal finding on CT scan. She had a largely normal physical examination but had subjective weakness and paresthesias of the right upper extremity. She did however have normal strength on physical examination. Signed out to oncoming physician Dr. Bedoya. Last Vital Signs Date Time Temp Pulse Resp B/P (MAP) Pulse Ox O2 Delivery O2 Flow Rate FiO2 05/12/20 12:45 98.8 16 122/79 99 Room Air 05/12/20 12:45 73 Referrals: NON PHYSICIAN (PCP) Omega Jones M.D. May 12, 2020 14:06
[2020-05-12] MEDS ORDERED: Ketorolac 30mg Inj IV ONE (14:15)
[2020-05-12] MEDS ORDERED: TYLENOL EXTRA500 MG ORAL (16:11)
[2020-05-12] MEDS ORDERED: Acetaminophen 500mg (ES) tab ORAL ONE (16:15)
[2020-05-12 16:20] VITALS: BP 118/78
--- NOTE | 2020-05-12 16:55 | Emergency Room Report ---
Physical Exam Vital Signs Date Time Temp Pulse Resp B/P (MAP) Pulse Ox O2 Delivery O2 Flow Rate FiO2 05/12/20 12:13 98.8 73 16 122/79 (93) 99 Room Air Medical Decision Making Diagnostic Impression: Primary Impression: Headache ER Course Patient endorsed to me pending MRI Labs unremarkable Had CT done a few days ago which showed some artifact possible abnormality. Patient had left AMA at that time MRI is unremarkable with discussion with radiologist discussed with patient and mother at bedside. Safe for discharge close outpatient follow-up. Mother states she does have migraines as well. States she will follow-up with her PMD. Laboratory Tests Test 05/12/20 12:30 White Blood Count 9.9 K/UL (4.8-10.8) Red Blood Count 4.55 M/UL (4.20-5.40) Hemoglobin 13.0 G/DL (12.0-16.0) Hematocrit 40.4 % (37.0-47.0) Mean Corpuscular Volume 89 FL (80-99) Mean Corpuscular Hemoglobin 28.5 PG (27.0-31.0) Mean Corpuscular Hemoglobin Concent 32.1 G/DL (32.0-36.0) Red Cell Distribution Width 14.1 % (11.6-14.8) Platelet Count 313 K/UL (150-450) Mean Platelet Volume 7.5 FL (6.5-10.1) Neutrophils (%) (Auto) 66.6 % (45.0-75.0) Lymphocytes (%) (Auto) 23.5 % (20.0-45.0) Monocytes (%) (Auto) 5.7 % (1.0-10.0) Eosinophils (%) (Auto) 3.1 % (0.0-3.0) H Basophils (%) (Auto) 1.1 % (0.0-2.0) Urine Color Pale yellow Urine Appearance Clear Urine pH 8 (4.5-8.0) Urine Specific Stuart 1.010 (1.005-1.035) Urine Protein Negative (NEGATIVE) Urine Glucose (UA) Negative (NEGATIVE) Urine Ketones Negative (NEGATIVE) Urine Blood 5+ (NEGATIVE) H Urine Nitrite Negative (NEGATIVE) Urine Bilirubin Negative (NEGATIVE) Urine Urobilinogen Normal MG/DL (0.0-1.0) Urine Leukocyte Esterase Negative (NEGATIVE) Urine RBC 5-10 /HPF (0 - 2) H Urine WBC 0 /HPF (0 - 2) Urine Squamous Epithelial Cells Few /LPF (NONE/OCC) Urine Bacteria Occasional /HPF (NONE) Urine HCG, Qualitative Negative (NEGATIVE) Sodium Level 141 MMOL/L (136-145) Potassium Level 3.9 MMOL/L (3.5-5.1) Chloride Level 106 MMOL/L (98-107) Carbon Dioxide Level 26 MMOL/L (21-32) Anion Gap 9 mmol/L (5-15) Blood Urea Nitrogen 14 mg/dL (7-18) Creatinine 0.8 MG/DL (0.55-1.30) Estimat Glomerular Filtration Rate > 60 mL/min (>60) Glucose Level 85 MG/DL (74-106) Calcium Level 8.5 MG/DL (8.5-10.1) Total Bilirubin 0.2 MG/DL (0.2-1.0) Aspartate Amino Transf (AST/SGOT) 26 U/L (15-37) Alanine Aminotransferase (ALT/SGPT) 46 U/L (12-78) Alkaline Phosphatase 96 U/L (46-116) Total Protein 7.7 G/DL (6.4-8.2) Albumin 3.7 G/DL (3.4-5.0) Globulin 4.0 g/dL Albumin/Globulin Ratio 0.9 (1.0-2.7) L CT/MRI/US Diagnostic Results CT/MRI/US Diagnostic Results : Imaging Test Ordered: MRI brain Impression no acute process Last Vital Signs Date Time Temp Pulse Resp B/P (MAP) Pulse Ox O2 Delivery O2 Flow Rate FiO2 05/12/20 16:20 98.8 87 17 118/78 100 Room Air Status: improved Disposition: HOME, SELF-CARE Condition: Stable Scripts Acetaminophen* (TYLENOL EXTRA STRENGTH*) 500 Mg Tablet 500 MG ORAL Q8H PRN for Prn Headache/Temp > 101, #30 TAB 0 Refills Prov: Fabrice Bedoya MD 05/12/20 Referrals: NON PHYSICIAN (PCP) [facility] Patient Instructions: Migraine Headache, [id number] Fabrice Bedoya MD May 12, 2020 16:55
--- NOTE | 2020-05-12 17:04 | Diagnostic Imaging Report ---
Indication: Or fracture headaches Technique: sagittal T1 fast spin echo, axial T1 FLAIR, axial T2 FLAIR, axial T2 FS PROPELLER, axial T2* GRE, axial diffusion weighted images. ADC and exponential ADC maps generated Comparison: No comparison MRI. Reference made to CT scan dated 05/09/2020 Findings: No findings referable to the pontine abnormality described on prior CT scan. This area. Normal; that finding was probably artifactual. No abnormal areas of restricted diffusion to suggest acute infarction. No acute hemorrhage or edema. No mass effect nor midline shift there is vascular flow voids are preserved. Normal size ventricles and extra axial CSF spaces. Visualized orbits and sinuses are unremarkable. Impression: Negative
== END 2020-05-12 13:20 | disposition home or self-care (01) ==
LOC: EMR 12:30
DX: R51.9 Headache, unspecified (principal); Z88.1 Allergy status to other antibiotic agents; R20.2 Paresthesia of skin; H53.149 Visual discomfort, unspecified
CPT/HCPCS: 36415; 70551; 80053; 81003; 81025; 85025; 93005; 96361; 96374; J1885; J7030; Z7502; 99284